=== PATIENT | female | born 1985 | race African-American/Black ===

== ENCOUNTER 2025-04-26 07:35 | Emergency (ER) | payer MEDICAID ==
[~2025-04-26] VITALS: Ht 175.3 cm; Wt 86.0 kg
[~2025-04-26 07:35] MED LIST: APIX5TAB PO; EMPA25TA PO; FOLI-43 PO; GLIP5TAB22 PO; LURA20TA2 PO; METF-416 PO; METH2.5T PO; NALT50TA6 PO
[2025-04-26 07:37] VITALS: O2SAT 100
[2025-04-26 08:29] LABS: BASOPHILS % 1.1 % (0.0-2.0); EOSINOPHILS % 3.8 % (0.0-5.0); HEMATOCRIT. 32.7 % (36.0-48.0); HEMOGLOBIN. 10.5 g/dL (12.0-16.0); LYMPHOCYTES % 23.3 % (20.0-50.0); MEAN PLATELET VOLUME 7.1 fl (7.4-10.4); MONOCYTES % 6.9 % (2.0-8.0); NEUTROPHILS % 64.9 % (40.0-76.0); PLATELET 365 x1000/uL (130-400); RED BLOOD CELL COUNT 4.60 mill/uL (4.2-5.4); RED CELL DISTRIBUTION WIDTH 21.3 % (11.6-14.6)
[2025-04-26] MEDS: ONDANSETRON HCL 4MG/2ML INJ IV ONE (08:35)
[2025-04-26] MEDS: ACETAMINOPHEN 325MG TABLET PO ONE (08:35)
[2025-04-26 08:42] LABS: CREATININE 0.6 mg/dL (0.6-1.0); UREA NITROGEN BLOOD 11 mg/dL (9-23)
[2025-04-26 08:44] LABS: ASPARTATE AMINOTRANSFERASE 21 IU/L (<34)
[2025-04-26 08:45] LABS: BILIRUBIN TOTAL 0.3 mg/dL (0.1-1.0); PROTEIN TOTAL 7.0 g/dL (6.0-8.3)
[2025-04-26 08:50] LABS: HCG SCREEN NEGATIVE
[2025-04-26 09:49] LABS: GLUCOSE URINE TRACE (NEGATIVE); KETONES URINE TRACE (NEGATIVE); LEUKOCYTE ESTERASE URINE NEGATIVE (NEGATIVE); NITRITE URINE NEGATIVE (NEGATIVE); OCCULT BLOOD URINE 3+ (NEGATIVE); PH URINE 5.5 (4.5-8.0); PROTEIN URINE 4+ (NEGATIVE); SPECIFIC GRAVITY URINE 1.027 (1.005-1.030); UROBILINOGEN URINE 0.2 E.U./dL (0.2-1.0)
[2025-04-26 10:00] LABS: BACTERIA URINE 3+; CLARITY URINE TURBID (CLEAR); COLOR URINE BLOODY (YELLOW); RBC URINE TNTC /hpf (0-2); SQUAMOUS EPITHELIAL CELL URINE NONE SEEN /lpf (RARE/1+); YEAST URINE NONE SEEN
[2025-04-26 13:12] VITALS: BP 118/78; PULSE 100; RESP 19; TEMP 36.8; O2SAT 100
== END 2025-04-26 15:08 | disposition home or self-care (01) ==
LOC: ER 07:35
DX: D25.9 Leiomyoma of uterus, unspecified (principal); E11.65 Type 2 diabetes mellitus with hyperglycemia; I10 Essential (primary) hypertension; Z79.899 Other long term (current) drug therapy; Z88.0 Allergy status to penicillin; Z79.84 Long term (current) use of oral hypoglycemic drugs
CPT/HCPCS: 80053; 81003; 84703; 83690; 85025; 86850; 86900; 86901; 36415; 74176; 76856; 96374; 99285; J2405; Z7610 ×2